=== PATIENT | female | born 1965 | race Caucasian/White ===

== ENCOUNTER 2018-06-26 13:48 | Emergency (ER) | payer OTHER ==
[2018-06-26] MEDS ORDERED: Diphtheria/Tetanus Toxoids,Adult (Td) 0.5 ML Syringe IM ONE (14:08)
[2018-06-26] MEDS ORDERED: Bacitracin/Neomycin/Polymyxin B Oint 0.9 GM U/D Packet TOP ONE (14:09)
--- NOTE | 2018-06-26 14:16 | EDM.PDOC ---
ED HPI GENERAL MEDICAL PROBLEM - General Chief Complaint: Laceration Stated Complaint: finger laceration Time Seen by Provider: 06/26/18 14:11 Source of Information: Reports: Patient History Limitations: Reports: No Limitations - History of Present Illness INITIAL COMMENTS - FREE TEXT/NARRATIVE: Patient is a 52-year-old who is seen today with laceration of left index finger secondary to getting her finger caught in the doorway Onset: Today Duration: Minutes:, Constant Location: Reports: Upper Extremity, Right Improves with: Reports: None Worsens with: Reports: None Context: Reports: Trauma Right Upper Finger-Index Pain Score (Numeric/FACES): 9 - Related Data Allergies Allergy/AdvReac Type Severity Reaction Status Date / Time morphine Allergy Rash Verified 06/26/18 13:54 Home Meds: Home Meds Albuterol [Ventolin HFA] 1 puff .XX BID 06/26/18 [History] DULoxetine [Cymbalta] 60 mg PO BID 06/26/18 [History] Gabapentin [Neurontin] 800 mg PO TID 06/26/18 [History] ED ROS GENERAL - Review of Systems Review Of Systems: See Below HEENT: Reports: No Symptoms Respiratory: Reports: Shortness of Breath, Other (History of asthma) Cardiovascular: Reports: No Symptoms Endocrine: Reports: No Symptoms GI/Abdominal: Reports: No Symptoms : Reports: No Symptoms Musculoskeletal: Reports: No Symptoms Skin: Reports: No Symptoms Neurological: Reports: No Symptoms Psychiatric: Reports: Other (History of PTSD) Hematologic/Lymphatic: Reports: No Symptoms Immunologic: Reports: No Symptoms ED EXAM, SKIN/RASH Exam: See Below Exam Limited By: No Limitations General Appearance: Alert, WD/WN, No Apparent Distress Ears: Normal External Exam, Normal Canal, Hearing Grossly Normal, Normal TMs Nose: Normal Inspection, Normal Mucosa, No Blood Throat/Mouth: Normal Inspection, Normal Lips, Normal Teeth, Normal Gums, Normal Oropharynx, Normal Voice, No Airway Compromise Head: Atraumatic, Normocephalic Neck: Normal Inspection, Supple, Non-Tender, Full Range of Motion Respiratory/Chest: No Respiratory Distress, Lungs Clear, Normal Breath Sounds, No Accessory Muscle Use, Chest Non-Tender Cardiovascular: Normal Peripheral Pulses, Regular Rate, Rhythm, No Edema, No Gallop, No JVD, No Murmur, No Rub GI/Abdominal: Normal Bowel Sounds, Soft, Non-Tender, No Organomegaly, No Distention, No Abnormal Bruit, No Mass (Female) Exam: Normal External Exam, Normal Speculum Exam, Normal Bimanual Exam Rectal (Female) Exam: Deferred Extremities: Normal Inspection, Normal Range of Motion, Non-Tender, No Pedal Edema, Normal Capillary Refill Neurological: Other (PTSD) Psychiatric: Other (PTSD) Skin: Warm, Dry, Wound/Incision (Laceration right index finger) ED SKIN PROCEDURES - Laceration/Wound Repair Right Ventral Digit - 2nd (Index) Lac/Wound length In cm: 1.5 Appearance: Superficial Distal NVT: Neuro & Vascular Intact Anesthetic Type: Local Local Anesthesia - Lidocaine (Xylocaine): 1% Plain Local Anesthetic Volume: 3cc Skin Prep: Chlorhexidine (Hibiciens) Exploration/Debridement/Repair: In a Bloodless Field Closed with: Sutures Suture Size: 4-0 Suture Type: Nylon Course - Vital Signs Last Recorded V/S: Last Vital Signs Temp 97.5 F 06/26/18 13:49 Pulse 100 06/26/18 13:49 Resp 20 06/26/18 13:49 BP 135/85 06/26/18 13:49 Pulse Ox 99 06/26/18 13:49 - Orders/Labs/Meds Orders: Active Orders 24 hr Category Date Time Status Vaccines to be Administered [RC] PER UNIT ROUTINE Care 06/26/18 14:08 Ordered Bacitracin/Neomycin/Polymyxin [Triple Antibiotic Oint] Med 06/26/18 14:09 Once 1 each TOP ONETIME ONE Diphtheria/Tetanus Tox,Adult [Tenivac] Med 06/26/18 14:08 Once 0.5 ml IM .ONCE ONE Medication Orders Neomycin/Polymyxin/Bacitracin (Triple Antibiotic Oint) 1 each TOP ONETIME ONE Stop: 06/26/18 14:10 Tetanus/Diphtheria Toxoids (Tenivac) 0.5 ml IM .ONCE ONE Stop: 06/26/18 14:09 Meds: Medications Generic Name Dose Route Start Last Admin Trade Name Freq PRN Reason Stop Dose Admin Neomycin/Polymyxin/Bacitracin 1 each 06/26/18 14:09 Triple Antibiotic Oint TOP 06/26/18 14:10 ONETIME ONE Tetanus/Diphtheria Toxoids 0.5 ml 06/26/18 14:08 Tenivac IM 06/26/18 14:09 .ONCE ONE Discontinued Medications Generic Name Dose Route Start Last Admin Trade Name Carlito PRN Reason Stop Dose Admin Lidocaine HCl 5 ml 06/26/18 14:07 Xylocaine-Mpf 1% INJECT 06/26/18 14:08 ONETIME ONE Departure - Departure Time of Disposition: 14:29 Disposition: Home, Self-Care 01 Condition: Fair Clinical Impression: Laceration - Discharge Information - My Orders Last 24 Hours: My Active Orders 06/26/18 14:08 Vaccines to be Administered [RC] PER UNIT ROUTINE Diphtheria/Tetanus Tox,Adult [Tenivac] 0.5 ml IM .ONCE ONE 06/26/18 14:09 Bacitracin/Neomycin/Polymyxin [Triple Antibiotic Oint] 1 each TOP ONETIME ONE - Assessment/Plan Last 24 Hours: My Active Orders 06/26/18 14:08 Vaccines to be Administered [RC] PER UNIT ROUTINE Diphtheria/Tetanus Tox,Adult [Tenivac] 0.5 ml IM .ONCE ONE 06/26/18 14:09 Bacitracin/Neomycin/Polymyxin [Triple Antibiotic Oint] 1 each TOP ONETIME ONE
== END 2018-06-26 14:40 | disposition home or self-care (01) ==
LOC: LL.ED 13:48
DX: S61.211A Laceration without foreign body of left index finger without damage to nail, initial encounter (principal); Z88.5 Allergy status to narcotic agent; W23.0XXA Caught, crushed, jammed, or pinched between moving objects, initial encounter
CPT/HCPCS: 12001; 90714; 96372; 99282

== ENCOUNTER 2021-05-20 17:13 | Emergency (ER) | payer OTHER | END 2021-05-20 17:40 | disposition left against medical advice (07) | LOC: LL.ED 17:13 | DX: Z53.21 Procedure and treatment not carried out due to patient leaving prior to being seen by health care provider (principal) ==

== ENCOUNTER 2021-06-05 09:09 | Emergency (ER) | payer OTHER ==
[2021-06-05] MEDS ORDERED: Ketorolac 30 MG/ML SDV IM ONE (09:33)
--- NOTE | 2021-06-05 09:54 | EDM.PDOC ---
ED HPI GENERAL MEDICAL PROBLEM - General Chief Complaint: General Stated Complaint: Generalized pain Time Seen by Provider: 06/05/21 09:20 Source of Information: Reports: Patient History Limitations: Reports: No Limitations - History of Present Illness INITIAL COMMENTS - FREE TEXT/NARRATIVE: Patient presents to the ED for roof of the mouth pain that is not responding to topical lidocaine, tylenol or motrin. This has been going on for a few days. She also complains of anterior ankle pain that started while at work and she is unable to ambulate due to it. Nothing has helped this. Has to work the next couple of days, concerned that she can not. Has not slept due to the pain. 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, NSAIDS Left Ankle Pain Score (Numeric/FACES): 10 - Related Data Allergies Allergy/AdvReac Type Severity Reaction Status Date / Time morphine Allergy Rash Verified 06/05/21 09:31 Home Meds: Home Meds Albuterol [Ventolin HFA] 1 puff INH BID PRN 06/26/18 [History] Budesonide/Formoterol Fumarate [Symbicort 160-4.5 Mcg Inhaler] 6 gm IH DAILY 05/20/21 [History] DULoxetine [Cymbalta] 40 mg PO DAILY 05/20/21 [History] clindamycin HCL [Cleocin HCl] 300 mg PO TID 10 Days #30 capsule 06/05/21 [Rx] traMADol [Ultram] 50 mg PO Q6H PRN #15 tab 06/05/21 [Rx] Past Medical History Psychiatric History: Reports: Anxiety, Depression, PTSD - Infectious Disease History Infectious Disease History: Reports: Chicken Pox Social & Family History - Caffeine Use Caffeine Use: Reports: Coffee, Soda ED ROS GENERAL - Review of Systems Review Of Systems: See Below Constitutional: Reports: No Symptoms. Denies: Fever, Chills, Malaise HEENT: Reports: Dental Pain (with swelling of the roof of the mouth) Respiratory: Reports: No Symptoms Cardiovascular: Reports: No Symptoms Endocrine: Reports: No Symptoms GI/Abdominal: Reports: No Symptoms Musculoskeletal: Reports: Other (anterior left ankle pain) Neurological: Reports: No Symptoms Psychiatric: Reports: Agitation, Anxiety, Mood Lability ED EXAM, GENERAL - Physical Exam Exam: See Below Exam Limited By: Other (agitated, but redirectable and then cooperative.) General Appearance: Alert, WD/WN, Anxious Eye Exam: Bilateral Eye: Normal Inspection, PERRL Ears: Normal External Exam, Normal Canal, Hearing Grossly Normal Nose: Normal Inspection Throat/Mouth: Normal Lips, Normal Voice, Other (missing teeth, no noted decay. left upper incisior with swelling at the base on the mucosal side. No drainage seen,. No other swelling or concern) Head: Atraumatic Neck: Normal Inspection, Supple, Non-Tender Respiratory/Chest: No Respiratory Distress, Lungs Clear, Normal Breath Sounds Cardiovascular: Normal Peripheral Pulses, Regular Rate, Rhythm GI/Abdominal: Normal Bowel Sounds, Soft, Non-Tender, No Abnormal Bruit Extremities: Other (pain to palpation of the tibialis anterior on the left. worsening pain with dorsiflexion of the foot. no joint swelling at the ankle. peripheral pulses intact, no swelling, lesions or rashes, ) Course - Vital Signs Last Recorded V/S: Last Vital Signs Temp 35.7 C L 06/05/21 09:22 Pulse 86 06/05/21 09:22 Resp 18 06/05/21 09:22 BP 120/83 06/05/21 09:22 Pulse Ox 99 06/05/21 09:22 - Orders/Labs/Meds Orders: Active Orders 24 hr Category Date Time Status DME for Discharge [COMM] Stat Oth 06/05/21 09:33 Ordered Meds: Medications Discontinued Medications Generic Name Dose Route Start Last Admin Trade Name Freq PRN Reason Stop Dose Admin Ketorolac Tromethamine 30 mg 06/05/21 09:33 06/05/21 09:59 Ketorolac 30 Mg/Ml Sdv IM 06/05/21 09:34 30 mg ONETIME ONE Administration - Re-Assessments/Exams Free Text/Narrative Re-Assessment/Exam: given a toradol injection. discussed using a walker boot at all times to prevent limping. [facility], use [facility], lidocaine patches, biofreeze and aleve bid. tramadol for severe pain. Has a dental abscess. needs follow up with dentist. start clindamycin Departure - Departure Time of Disposition: 09:49 Disposition: Home, Self-Care 01 Condition: Good Clinical Impression: Dental abscess, Tendonitis of ankle - Discharge Information *PRESCRIPTION DRUG MONITORING PROGRAM REVIEWED*: Yes *COPY OF PRESCRIPTION DRUG MONITORING REPORT IN PATIENT EDGAR: No Prescriptions: clindamycin HCL [Cleocin HCl] 300 mg PO TID 10 Days #30 capsule traMADol [Ultram] 50 mg PO Q6H PRN #15 tab PRN Reason: Pain Instructions: RICE Therapy for Routine Care of Injuries, [id number], Tendinitis, Dental Abscess Referrals: PCP,Not In Area [Primary Care Provider] - Forms: ED Department Discharge, ED Return to Work/School Form Additional Instructions: You have a dental abscess. Take the antibiotic until gone and make appointment to see a dentist in the next week. return to the ED for facial swelling. You have tendonitis of the ankle. you are placed in a walker boot and should use at all times until you can walk without a limp. Take aleve 2 tablets twice a day for inflammation with food to prevent stomach upset. Use ice, biofreeze, lidocaine patches all available over the counter. Take the tramadol for sever pain and call and make appointment [facility] or your [facility] for follow up with these problems Sepsis Event Note (ED) - Evaluation Sepsis Screening Result: No Definite Risk - Focused Exam Vital Signs: Vital Signs Temp Pulse Resp BP Pulse Ox 06/05/21 09:22 35.7 C L 86 18 120/83 99 - My Orders Last 24 Hours: My Active Orders 06/05/21 09:33 DME for Discharge [COMM] Stat - Assessment/Plan Last 24 Hours: My Active Orders 06/05/21 09:33 DME for Discharge [COMM] Stat
== END 2021-06-05 10:09 | disposition home or self-care (01) ==
LOC: LL.ED 09:09
DX: K04.7 Periapical abscess without sinus (principal); M77.52 Other enthesopathy of left foot and ankle; Z88.5 Allergy status to narcotic agent
CPT/HCPCS: 96372; 99283; J1885

== ENCOUNTER 2021-08-13 09:04 | Emergency (ER) | payer OTHER ==
[2021-08-13] MEDS: HYDROmorphone 1 MG/ML Syringe IM ONE (09:17)
== END 2021-08-13 10:00 | disposition home or self-care (01) ==
LOC: LL.ED 09:04
DX: S93.401A Sprain of unspecified ligament of right ankle, initial encounter (principal); S80.01XA Contusion of right knee, initial encounter; S39.92XA Unspecified injury of lower back, initial encounter; Z88.5 Allergy status to narcotic agent; W00.0XXA Fall on same level due to ice and snow, initial encounter
CPT/HCPCS: 72170; 72220; 73562-RT; 73610-RT; 96372; 99283; 99283-25; J1170

== ENCOUNTER 2022-01-18 16:39 | Emergency (ER) | payer OTHER ==
[2022-01-18] MEDS ORDERED: Bupivacaine 0.25%/EPINEPHrine 1:200,000 30 ML SDV INJECT ONE (17:20)
[2022-01-18] MEDS ORDERED: Lidocaine 2% Viscous Solution 15 ML UD PO ONE (17:24)
== END 2022-01-18 18:00 | disposition home or self-care (01) ==
LOC: LL.ED 16:39
DX: K08.89 Other specified disorders of teeth and supporting structures (principal); Z88.5 Allergy status to narcotic agent; Z88.8 Allergy status to other drugs, medicaments and biological substances; Z87.891 Personal history of nicotine dependence; Z98.818 Other dental procedure status
CPT/HCPCS: 64400; 99282-25; 99283; A9270-GY

== ENCOUNTER 2022-11-29 14:56 | Emergency (ER) | payer OTHER | END 2022-11-29 15:40 | disposition home or self-care (01) | LOC: LL.ED 14:56 | DX: R60.0 Localized edema (principal); Z88.5 Allergy status to narcotic agent; Z91.040 Latex allergy status; Z88.7 Allergy status to serum and vaccine; Z87.891 Personal history of nicotine dependence | CPT/HCPCS: 99283; 99284 ==

== ENCOUNTER 2023-06-30 15:20 | Emergency (ER) | payer OTHER ==
[2023-06-30] MEDS ORDERED: Sodium Chloride 0.9% 10 ML Syringe FLUSH PRN (15:33)
[2023-06-30 15:46] LABS: BASOPHILS ABSOLUTE AUTO 0.02 K/uL (0.00-0.20); BASOPHILS PERCENT AUTO 0.5 % (0.0-2.0); EOSINOPHILS ABSOLUTE AUTO 0.07 K/uL (0.00-0.50); EOSINOPHILS PERCENT AUTO 1.9 % (0.0-5.0); HEMATOCRIT 42.6 % (34.0-46.0); HEMOGLOBIN 14.5 g/dL (11.7-15.5); LYMPHOCYTES ABSOLUTE AUTO 1.08 K/uL (0.50-3.50); LYMPHOCYTES PERCENT AUTO 29.4 % (10.0-50.0); MEAN CORPUSCULAR HEMOGLOBIN 30.8 pg (28.2-33.3); MEAN CORPUSCULAR VOLUME 90.4 fL (84.0-98.0); MONOCYTES ABSOLUTE AUTO 0.34 K/uL (0.00-1.00); MONOCYTES PERCENT AUTO 9.3 % (2.0-14.0); NEUTROPHILS ABSOLUTE AUTO 2.16 K/uL (1.40-7.00); NEUTROPHILS PERCENT AUTO 58.9 % (45.0-80.0); PLATELET COUNT,PLT 124 K/uL (150-350); RED BLOOD CELL COUNT 4.71 M/uL (3.77-5.09); RED CELL DISTRIBUTION WIDTH 12.9 % (11.2-14.1); WHITE BLOOD CELL COUNT,WBC 3.7 K/uL (4.0-10.2)
[2023-06-30] MEDS ORDERED: Ketorolac 15 MG/ML SDV IVPUSH ONE (15:56)
[2023-06-30] MEDS ORDERED: Sodium Chloride 0.9% 1,000 ML IV ONE (15:56)
[2023-06-30] MEDS ORDERED: Albuterol 6.7 GM Inhaler INH ONE (15:57)
[2023-06-30] MEDS ORDERED: methylPREDNISolone Sodium Succinate 40 MG/1 ML SDV IVPUSH ONE (15:57)
[2023-06-30] MEDS ORDERED: Benzonatate 100 MG Cap PO ONE (15:58)
[2023-06-30 16:05] LABS: ALBUMIN 3.5 g/dL (3.4-5.0); ANION GAP 10.4 meq/L (7-15); BILIRUBIN TOTAL 0.5 mg/dL (0.2-1.0); CALCIUM 8.4 mg/dL (8.5-10.1); CARBON DIOXIDE,CO2 25.6 mmol/L (21.0-32.0); CREATININE 0.86 mg/dL (0.51-1.17); EST CRCL DRUG DOSING (CG) 69.19 mL/min; POTASSIUM,K 3.6 mmol/L (3.5-5.1); PROTEIN TOTAL,TP 7.1 g/dL (6.4-8.2)
[2023-06-30 16:33] LABS: CORONAVIRUS COVID-19 NAA NEGATIVE (NEGATIVE); INFLUENZA A NAA POSITIVE (NEGATIVE); INFLUENZA B NAA NEGATIVE (NEGATIVE); RESPIRATORY SYNCYTIAL VIR NAA NEGATIVE (NEGATIVE)
== END 2023-06-30 18:10 | disposition home or self-care (01) ==
LOC: LL.ED 15:20
DX: J10.1 Influenza due to other identified influenza virus with other respiratory manifestations (principal); Z20.822 Contact with and (suspected) exposure to COVID-19; Z88.5 Allergy status to narcotic agent; Z91.040 Latex allergy status; Z88.6 Allergy status to analgesic agent; Z91.018 Allergy to other foods
CPT/HCPCS: 0241U; 36415; 71046; 80053; 85025; 87081; 87430; 94640; 96361; 96374; 96375; 99284; 99284-25; A9270-GY; J1885; J2920; J7030

== ENCOUNTER 2024-04-04 08:14 | Emergency (ER) | payer OTHER | END 2024-04-04 09:30 | disposition home or self-care (01) | LOC: LL.ED 08:14 | DX: J06.9 Acute upper respiratory infection, unspecified (principal); J45.21 Mild intermittent asthma with (acute) exacerbation; Z79.899 Other long term (current) drug therapy; Z79.51 Long term (current) use of inhaled steroids; Z88.5 Allergy status to narcotic agent; Z91.040 Latex allergy status; Z88.8 Allergy status to other drugs, medicaments and biological substances | CPT/HCPCS: 71046; 99283; 99284 ==